=== PATIENT | female | born 1975 | race Caucasian/White ===

== ENCOUNTER 2018-02-02 12:42 | Outpatient (REF) | payer SELFPAY ==
--- NOTE | 2018-02-02 11:10 | PAPFT_PTH ---
PATIENT: Halina Saucedo LOC: [facility] U#:[id number] AGE/SX: 42/F ROOM: RE02/02/[address]: LINDSAY Begum : 1975 BED: DIS: 02/02/2018 SPEC #: [id number] RECD: 02/02/18 17:39 STATUS: SUDHA REQ #: [id number] ELIEL: 02/02/18 11:[address]: Sofya Godinez DEPT: [facility] Cytology RECD BY: Ruth Rolon ENTERED: 02/02/18 17:40 SP TYPE: PAPFT OTHR DR: Kishore Kearney MD Tissues: 1 - CX/ENDOCX FOR PAP SMEARS Procedures: PAP THIN PREP/UVM Screening Comments: [id number] (UNSATISFACTORY FOR EVALUATION)
== END 2018-02-02 13:02 ==
LOC: LBN 12:42
PROVIDERS: PCP Family Medicine; Visit Provider Nurse Practitioner Family
DX: Z12.4 Encounter for screening for malignant neoplasm of cervix (principal); Z11.51 Encounter for screening for human papillomavirus (HPV)
CPT/HCPCS: 88142; 87624

== ENCOUNTER 2018-02-04 16:29 | Outpatient (CLI) | payer SELFPAY ==
--- NOTE | 2018-02-04 16:53 | DI.MAMMO_ITS ---
SYMPTOM/DIAGNOSIS: SCREENING, Z12.31 MAMMOGRAMS: Mammograms were interpreted according to the usual protocol including computer analysis with CAD system, tomosynthesis and C view imaging. Comparison is made with prior examinations. Breast density, Category B. No masses or microcalcifications are seen. There is nothing to suggest malignancy. IMPRESSION: Negative mammogram. Routine screening is recommended. Category 1. MQSA ASSESSMENT OF FINDINGS: Negative. Category 1. Patient will receive a letter notifying them of these results. BI-RADS category B. There are scattered areas of fibroglandular density.
== END 2018-02-04 16:49 ==
PROVIDERS: PCP Family Medicine; Visit Provider Nurse Practitioner Family
DX: Z12.31 Encounter for screening mammogram for malignant neoplasm of breast (principal)
CPT/HCPCS: 77063; 77067

== ENCOUNTER 2018-12-30 07:20 | Outpatient (CLI) | payer BC, SELFPAY ==
--- NOTE | 2018-12-30 10:03 | DI.MAMMO_ITS ---
EXAM: US BREAST LT LIMITED AND DIAGNOSTIC BILAT MAMMOGRAM CLINICAL HISTORY: F/U MAMMO, LT BREAST PAIN AND INCREASED NODULARITY. {SAMANTHA LIFETIME RISK OF DEVEL OPING BREAST CARCINOMA: (>20% is considered elevated and screening breast MRI can be considered)} TECHNIQUE: Craniocaudal and mediolateral oblique Full Field Digital Mammography views with Computer Aided Diagnosis followed by Breast Tomosynthesis and bilateral breast ultrasound. COMPARISON: Screening Bilat Mammo from 09/23/2016 [facility] mammo screening from 02/04/2018 FINDINGS: Mammography/Tomosynthesis: Breast Density: Breast Density - Category B - Scattered areas of fibroglandular density Masses/Architectural Distortion: None seen. Microcalcifications: No suspicious pleomorphic-type are seen. Breast Ultrasound: Left breast ultrasound: Echotexture: Normal appearance of the glandular tissue. Shadowing: No suspicious foci. Cyst: Small cyst is seen at the 2 o'clock position of the left breast 4 cm from the nipple. Solid lesions: None seen. Ductal dilation: None. IMPRESSION: 1. No evidence for malignancy. 2. Unless there is more urgent need, follow-up screening mammography is recommended, as per [place] [employer] guidelines. ACR BI-RAD Category- 1 Negative Breast Density - Category B - Scattered areas of fibroglandular density The findings were discussed with the patient on the date of the examination. A negative radiographic report should not delay biopsy if a dominant or clinically suspicious mass is present. Up to ten percent of cancers are not identified on mammography. A negative report may reinforce clinical impression. Adenosis and dense breasts may obscure an underlying neoplasm. False positive reports average 6 to 10%.
== END 2018-12-30 07:40 ==
PROVIDERS: PCP Family Medicine; Visit Provider Nurse Practitioner Family
DX: N63.20 Unspecified lump in the left breast, unspecified quadrant (principal); Z13.21 Encounter for screening for nutritional disorder; R92.8 Other abnormal and inconclusive findings on diagnostic imaging of breast; N64.4 Mastodynia; N60.02 Solitary cyst of left breast
CPT/HCPCS: 76642; 77062; 77066; G0279

== ENCOUNTER 2020-04-06 00:55 | Outpatient (CLI) | payer BC, SELFPAY ==
--- NOTE | 2020-04-06 07:00 | DI.US_ITS ---
EXAM: US PELVIS TRANSVAGINAL CLINICAL HISTORY: irregular and heavy bleeding,ABNL BLEEDING,N93.9 TECHNIQUE: Ultrasound of the pelvis was performed both transabdominal and transvaginal. COMPARISON: US US BREAST LT LIMITED from 12/30/2018 FINDINGS: UTERUS: Nongravid anteverted Measures 9.5 cm length x 4.2 cm AP x 5.7 cm wide. There are no uterine fibroids. Endometrial thickness measures 16-17 mm. There is no fluid in the endometrial canal. CERVIX: There are no obvious nabothian cysts. RIGHT OVARY: Measures 0.1 x 1.1 x 1.6 cm Small follicles follicles, the largest measuring 8 millimeters LEFT OVARY: Measures 3 point by 1.8 x 2.4 cm Multiple follicular cysts, the largest measuring 1.4 centimetres diameter CUL-DE-SAC: No free fluid evident. IMPRESSION: 1. Thickened endometrium measuring 16-17 millimeters. There is no fluid in the endometrial canal 2. Ovarian follicular cysts as described above, the largest measuring 1.4 centimetres by 1.3 centimet res (left ovary) 3. No free fluid evident in the adnexal regions and cul-de-sac. DATA REPOSITORY:
== END 2020-04-06 01:15 ==
PROVIDERS: PCP Family Medicine; Visit Provider Nurse Practitioner Family
DX: N93.9 Abnormal uterine and vaginal bleeding, unspecified (principal); R93.89 Abnormal findings on diagnostic imaging of other specified body structures; N83.02 Follicular cyst of left ovary; N83.01 Follicular cyst of right ovary
CPT/HCPCS: 76830; 76856

== ENCOUNTER 2020-04-14 10:10 | Outpatient (REF) | payer BC, SELFPAY ==
--- NOTE | 2020-04-14 10:00 | ENDO_PTH ---
PATIENT: Halina Saucedo LOC: [facility] U#:[id number] AGE/SX: 44/F ROOM: RE04/14/[address]: Alisa Vaz : 1975 BED: DIS: 04/14/2020 SPEC #: [id number] RECD: 04/14/20 13:19 STATUS: SUDHA REPeterson #: [id number] ELIEL: 04/14/20 10:[address]: Alisa Vaz DEPT: Surgical Specimen RECD BY: Ruth Rolon ENTERED: 04/14/20 13:20 SP TYPE: Endo OTHR DR: Kishore Kearney MD Tissues: 1 - ENDOCERVICAL BX/CURRETTE 2 - CERVICAL BIOPSY 3 - ENDOMETRIUM BX/CURRETTE Procedures: GROSS AND MICRO LEVEL 4 Comments: [id number]
== END 2020-04-14 10:30 ==
LOC: LBN 10:10
PROVIDERS: PCP Family Medicine; Visit Provider Obstetrics & Gynecology Gynecology
DX: N85.01 Benign endometrial hyperplasia (principal); N87.9 Dysplasia of cervix uteri, unspecified; N93.9 Abnormal uterine and vaginal bleeding, unspecified
CPT/HCPCS: 88305

== ENCOUNTER 2021-05-31 04:30 | Outpatient (CLI) | payer BC, SELFPAY ==
[2021-05-31 11:03] LABS: Hemoglobin A1C 5.8 % (<5.7)
[2021-05-31 11:19] LABS: Calculated LDL 110 mg/dL (<100); Cholesterol 205 mg/dL (<200); HDL Cholesterol 72 mg/dL (40-60); Triglyceride 119 mg/dL (<150)
== END 2021-05-31 04:31 | disposition home or self-care (01) ==
LOC: LBO 04:30
PROVIDERS: PCP Nurse Practitioner Family; Visit Provider Nurse Practitioner Family
DX: Z13.220 Encounter for screening for lipoid disorders (principal); Z13.1 Encounter for screening for diabetes mellitus
CPT/HCPCS: 36415; 80061; 83036

== ENCOUNTER 2021-07-23 15:17 | Outpatient (CLI) | payer BC, SELFPAY ==
[2021-07-23 14:09] LABS: HCT 34.4 % (36.0-46.0); HGB 10.9 g/dL (11.2-15.7)
[2021-07-23 14:31] LABS: TSH (W/Ref FT4) 3.79 uIU/mL (0.36-3.74)
[2021-07-23 14:51] LABS: FREE T4 0.94 ng/dL (0.76-1.46)
== END 2021-07-23 15:18 | disposition home or self-care (01) ==
LOC: LBO 15:18
PROVIDERS: PCP Nurse Practitioner Family; Visit Provider Nurse Practitioner Family
DX: N93.8 Other specified abnormal uterine and vaginal bleeding (principal)
CPT/HCPCS: 36415; 84439; 84443; 85014; 85018

== ENCOUNTER 2021-09-04 12:37 | Outpatient (REF) | payer BC, SELFPAY ==
--- NOTE | 2021-09-04 10:40 | ENDOMET_PTH ---
PATIENT: Halina Saucedo LOC: [facility] U#:[id number] AGE/SX: 45/F ROOM: RE09/04/[address]: Danielle Sanderson DO : 1975 BED: DIS: 09/04/2021 SPEC #: [id number] RECD: 09/04/21 13:07 STATUS: SUDHA RE #: [id number] ELIEL: 09/04/21 10:[address]: Danielle Sanderson DEPT: Surgical Specimen RECD BY: Ruth Rolon ENTERED: 09/04/21 13:07 SP TYPE: Endomet OTHR DR: Yang Dobbins, EVETTE Tissues: 1 - ENDOMETRIUM BX/GIANLUCA Procedures: GROSS AND MICRO LEVEL 4 Comments: [id number]
== END 2021-09-04 12:38 | disposition home or self-care (01) ==
LOC: LBN 12:37
PROVIDERS: PCP Nurse Practitioner Family; Visit Provider Obstetrics & Gynecology
DX: N84.0 Polyp of corpus uteri (principal); N85.8 Other specified noninflammatory disorders of uterus; N93.8 Other specified abnormal uterine and vaginal bleeding
CPT/HCPCS: 88305

== ENCOUNTER 2021-09-17 02:52 | Outpatient (CLI) | payer BC, SELFPAY ==
[2021-09-17 11:34] LABS: Abs Immature Grans 0.03 10^3/uL (0.0-0.06); Absolute Basophil Count 0.05 10^3/uL (0.0-0.2); Absolute Lymphocyte Count 2.28 10^3/uL (1.2-3.4); Absolute Monocyte Count 0.74 10^3/uL (0.1-0.8); Absolute Neutrophil Count 6.23 10^3/uL (1.2-6.7); Basophils % 0.5; Eosinophils % 2.1; HCT 36.2 % (36.0-46.0); Immature Grans % 0.3; Lymphocytes % 23.9; MCH 22.3 pg (27.0-33.0); MCHC 30.4 % (32.0-36.0); MCV 73 fL (80-95); MPV 10.4 fL (8.0-11.0); Monocytes % 7.8; Neutrophils % 65.4; Platelet Count 387 10^3/uL (130-400); RBC 4.94 10^6/uL (3.93-5.22); RDW 16.4 % (11.7-14.6); RDW-SD 42.9 fL; WBC 9.53 10^3/uL (4.4-10.8)
[2021-09-17 11:48] LABS: Source Nasal/Nares
[2021-09-17 11:57] LABS: CREATININE 0.8 mg/dL (0.55-1.02)
[2021-09-17 11:59] LABS: Diff Comment RBC Morph Reviewed; Microcytosis 2+
[2021-09-17 15:42] LABS: COVID-19 PCR Negative (Negative)
== END 2021-09-17 02:53 | disposition home or self-care (01) ==
LOC: LBO 02:52
PROVIDERS: PCP Nurse Practitioner Family; Visit Provider Obstetrics & Gynecology
DX: D64.9 Anemia, unspecified; N92.0 Excessive and frequent menstruation with regular cycle; I10 Essential (primary) hypertension; Z20.822 Contact with and (suspected) exposure to COVID-19; Z01.818 Encounter for other preprocedural examination; Z01.812 Encounter for preprocedural laboratory examination
CPT/HCPCS: 36415; 86850; 86900; 86901; 87635; 82565; 85025

== ENCOUNTER 2021-09-19 06:15 | Inpatient (IN) | payer BC, SELFPAY ==
--- NOTE | 2021-09-18 12:26 | HPE_ITS ---
Date of service: 09/18/21 Time of Service: 12:26 Assessment and Plan Assessment and plan (1) Menorrhagia: Status: Acute Assessment and plan: Ongoing heavy menstrual bleeding with a history in the past of endometrial ablation, which has at this point failed. She has heavy and painful menstrual cycles. She has had some improvement with progesterone use for stabilization of the endometrium, however wishes for definitive therapy. The risk benefits and alternatives of laparoscopically assisted vaginal history with bilateral salpingectomy were explained to the patient in full informed consent was obtained. She understands the risk of infection, bleeding, injury to surrounding organs, risk of anesthesia. She understands the increased risk for thromboembolic disorders. She will be taken the operating room on 09/19 due to the previously mentioned procedure. Preoperative hemoglobin is 11. COVID testing is performed and normal. Blood type is O+. (2) Dysmenorrhea: Status: Acute (3) History of endometrial biopsy: Status: Acute History of Present Illness Narrative: Patient is a 45-year-old female who has had ongoing heavy vaginal bleeding. She had had a pelvic ultrasound, endometrial sampling, and was placed empirically on Cheston to control her bleeding and for stabilization of the endometrium. Her heavy menstrual bleeding and painful periods did lead to anemia. She request definitive therapy. Risk benefits and alternatives of laparoscopically assisted vaginal hysterectomy with bilateral appendectomy were explained to the patient in full informed consent had been obtained. She had no need for contraceptive therapy as she has had a previous tubal ligation. Her pelvic ultrasound revealed a uterus that measured 10.5 x 5.3 x 7.3 cm with a 3.5 cm endometrial thickness. Ovaries are normal bilaterally. Endometrial sampling was benign. Most recent Pap smear is up-to-date and normal. PFSH All Active Problems Hypothyroid (Chronic) Tinnitus of both ears (Acute) GERD (gastroesophageal reflux disease) (Chronic) Hypertension (Chronic) Low back pain (Acute) History of endometrial biopsy (Acute) 2013. for menorrhagia. Nl. 03/2020. for eval of menorrhagia. Unsatisfactory cervical Papanicolaou smear (Chronic) 04/14/2020: Colpo directed biopsy and ECC was performed Bilateral hearing loss (Acute 06/29/00) Cochlear implant in place (Acute) Menorrhagia (Acute) 04/14/2020 patient counseled regarding treatment options. Has decided upon a hydrothermal endometrial ablation. Dysmenorrhea (Acute) Medical History Abnormal uterine bleeding for ~ 1yr. Heavy regular menses. Dysmenorrhea. Nl CBC and TSH. Uterus 9cm with 20m myometrial fibroid. Surgical History History of cochlear implant Ligation of fallopian tube Family History Mother Essential hypertension Grandfather Personal history of malignant neoplasm LUNG CAD (coronary artery disease) Grandmother Personal history of malignant neoplasm BREAST/OVARIAN Son No problems noted. Son No problems noted. Daughter No problems noted. Social History Smoking/Tobacco Use Status: Never Second Hand Exposure: Yes Smoking risk assessment performed?: Yes Alcohol Intake: current Alcohol type: beer and wine Drug use: Never Household members: spouse Housing: house Communication Needs: Hard of Hearing Do you need help understanding health information?: Never Pets and animals: No Sexually active: Yes Do you think of yourself as: straight/heterosexual Current gender identity: female What is your relationship status?: How often do you talk on the phone with friends or family?: three or more times per week How often do you get together with friends or relatives?: three or more times per week How often do you attend holiness or buddhist services?: decline to answer Do you belong to any clubs or organized social groups?: no Panel score (0-1 are the most socially isolated patients): 2 What type of physical activity do you participate in: walking Duration: 30-45 minutes/day Frequency: daily Oumou/Latter Day: None Do you feel safe in your relationship?: Yes Female Reproductive History Menstrual control method: permanent sterilization History History 4 Para 3 Hx # Term Pregnancies Multiple births Hx # Pregnancies Ectopic pregnancies AB induced Hx Number of Living Children AB spontaneous Meds Allergies and Home Medications Allergies Allergy/AdvReac Type Severity Reaction Status Date / Time cyclobenzaprine AdvReac lip Verified 09/04/21 10:31 [From Flexeril] tingling Home Medications Medication Instructions Recorded Confirmed Type omeprazole 20 mg capsule,delayed 20 mg PO DAILY #90 caps 05/31/21 08/13/21 Rx release lisinopril 10 mg tablet 10 mg PO DAILY #90 tabs 06/28/21 08/13/21 Rx levothyroxine 25 mcg tablet 25 mcg PO DAILY #90 tabs 07/27/21 08/13/21 Rx (Synthroid) norethindrone acetate 5 mg tablet 5 mg PO Q4H WHILE AWAKE #120 tabs 09/04/21 09/04/21 Rx (Aygestin) Exam Narrative Exam Narrative: Patient has ongoing painful heavy vaginal bleeding Const General: cooperative, healthy appearing, comfortable, no acute distress, well developed and well groomed Nutritional Appearance: average body habitus HENMT Head: normal to inspection Eyes General: appearance normal, both eyes and all related structures Neck Neck: normal visual inspection Resp Effort & Inspection: normal respiratory effort, no audible wheezes and no cough Auscultation: clear to auscultation bilaterally, no rales, no rhonchi and no wheezes Cardio Rate: regular rate Rhythm: regular rhythm Heart Sounds: S1 normal, S2 normal and no murmurs GI Inspection: normal to inspection Palpation: not firm and no guarding External Female Exam: normal external appearance and no external swelling Speculum Exam - Vagina: normal appearance of the vagina, normal vaginal discharge and vaginal bleeding Speculum Exam - Cervix: normal appearance of the cervix Bimanual Exam- Vagina & Uterus: normal bimanual exam, consistency normal, non- tender, enlarged and not fixed Bimanual Exam- Adnexa, other: normal adnexae, adnexae mobile and no masses OB/External & Speculum: vaginal bleeding Skin General skin exam: no rashes or lesions noted Extrem General: no clubbing, cyanosis or edema
[2021-09-19] VITALS (16 sets, daily range): BP systolic 100–152; BP diastolic 39–103; PULSE 52–80; RESP 12–20; TEMP 36.3–37; O2SAT 94–100; BMI 39.0
--- NOTE | 2021-09-19 06:53 | W.ANESPRE ---
General Info Date of Service Date Performed: 09/19/21 Height: 5 ft 5 in Weight: 106.5 kg Body Mass Index (BMI): 39.0 Surgical Procedure: Operation Date: 09/19/21 07:40 Proposed Procedure Side Surgeon p Hysterectomy Vaginal Laparoscopic Assist w/Cystoscopy Danielle Sanderson DO s Salpingectomy Laparoscopic Bilateral Danielle Sanderson DO [place] Allergies and Home Medications Allergies Allergy/AdvReac Type Severity Reaction Status Date / Time cyclobenzaprine AdvReac lip Verified 09/19/21 06:06 [From Flexeril] tingling Home Medication Medication Instructions Recorded omeprazole 20 mg capsule,delayed 20 mg PO DAILY #90 caps 05/31/21 release lisinopril 10 mg tablet 10 mg PO DAILY #90 tabs 06/28/21 levothyroxine 25 mcg tablet 25 mcg PO DAILY #90 tabs 07/27/21 (Synthroid) norethindrone acetate 5 mg tablet 5 mg PO Q4H WHILE AWAKE #120 tabs 09/04/21 (Aygestin) Current Visit Medications: Current Medications Generic Name Dose Route Start Last Admin Trade Name Freq PRN Reason Stop Dose Admin Ringer's Solution 1,000 mls @ 125 mls/hr 09/19/21 06:00 IV 10/18/21 23:59 INFUSION MIRIAN Cefazolin Sodium/Dextrose 2 gm in 50 mls @ 100 mls/hr 09/19/21 06:00 Ancef Duplex IVPB 09/19/21 16:00 PREOP MIRIAN IV Miscellaneous Supplies 1 each 09/19/21 06:00 Iv Access IV 10/18/21 23:59 DIRECTED MIRIAN Sodium Chloride 0 ml 09/19/21 06:00 Normal Saline Flush 10 Ml Syr IV 10/18/21 23:59 PRN PRN Sodium Chloride 0 ml 09/19/21 06:00 Normal Saline 10 Ml Vial IJ 10/18/21 23:59 DIRECTED PRN Sterile Water 0 ml 09/19/21 06:00 Water,Injection,Sterile 10 Ml Vial IJ 10/18/21 23:59 DIRECTED PRN PFSH Active Problems Active Problems: Problem Status Onset Code Hypothyroid E03.9 Tinnitus of both ears H93.13 GERD (gastroesophageal reflux disease) K21.9 Hypertension I10 Low back pain M54.5 History of endometrial biopsy Z92.89 Unsatisfactory cervical Papanicolaou smear R87.615 Bilateral hearing loss 06/29/00 H91.[address] Z96.21 Menorrhagia N92.0 Dysmenorrhea N94.6 Medical History Medical History Abnormal uterine bleeding for ~ 1yr. Heavy regular menses. Dysmenorrhea. Nl CBC and TSH. Uterus 9cm with 20m myometrial fibroid. Surgical History Surgical History History of cochlear implant Ligation of fallopian tube Tobacco Smoking/Tobacco Use Status: Never Passive smoking exposure: Yes Second hand exposure: Yes Alcohol Alcohol Intake: current Alcohol type: beer and wine Substance Use Substance use: Never Substance use type: does not use Prental History History 4 Para 3 Hx # Term Pregnancies Multiple births Hx # Pregnancies Ectopic pregnancies AB induced Hx Number of Living Children AB spontaneous Vital Signs and Lab Results Vital Signs Most Recent Vital Signs in EMR: Most Recent Vital Signs Temp Pulse Resp BP Pulse Ox 37 C 78 18 152/103 H 99 09/19/21 06:15 09/19/21 06:15 09/19/21 06:15 09/19/21 06:15 09/19/21 06:15 Lab Results Blood Type / Crossmatch: Patient ABO/Rh O Positive 09/17/21 Antibody Screen NEGATIVE 09/17/21 Complete Blood Count: White Blood Count 9.53 10^3/uL (4.4-10.8) 09/17/21 11:22 Red Blood Count 4.94 10^6/uL (3.93-5.22) 09/17/21 11:22 Hemoglobin 11.0 g/dL (11.2-15.7) L 09/17/21 11:22 Hematocrit 36.2 % (36.0-46.0) 09/17/21 11:22 Platelet Count 387 10^3/uL (130-400) 09/17/21 11:22 Complete Metabolic Panel: Creatinine 0.8 mg/dL (0.55-1.02) 09/17/21 11:22 Estimated GFR/1.73 m2 >= 60.00 (mL/min/1.73m2) 09/17/21 11:22 Liver Function Panel: No Data to Display Coagulation Panel: No Data to Display Cardiac Panel: No Data to Display Arterial Blood Gas: No Data to Display Venous Blood Gas: No Data to Display Pancreas Panel: No Data to Display Thyroid Panel: No Data to Display Infectious Disease: Coronavirus (COVID-19)(PCR) Negative (Negative) 09/17/21 11:05 Coronavirus 2019 Source Nasal/Nares 09/17/21 11:05 Blood Cultures: No Data to Display Toxicology Panel: No Data to Display Panel: Urine HCG, Qualitative Negative 09/04/21 12:31 Anesthesia Assessment and Plan Anesthesia History Personal History: No History of Anesthesia Complications Family History: No Family History of Anesthesia Complications Exercise Tolerance Exercise Tolerance: Metabolic Equivalents>4 Pertinent Negatives Pertinent Negatives: No Symptoms of GERD, No Major Cardiovascular Symptoms or Complaints, No Major Pulmonary Symptoms or Complaints and No History of CVA/TIA Cardiac & Pulmonary Exam Cardiac Exam: Normal S1/S2 Heart Sounds Pulmonary Exam: Clear Bilateral Breath Sounds Implantable Cardiac Device Does patient have a Pacemaker or an ICD?: No Airway Exam Known Difficult Airway: No Mallampati Class: 1 Mouth Opening: Normal (> 3cm) Thyromental Distance: Greater than 3 cm Neck Range of Motion: Full ROM Neck Circumference: Normal Teeth Condition: Normal Dentition ASA Classification ASA Score: ASA 2 Emergency Case?: No NPO Status NPO Status: NPO Clears >2 hours, Solids >8 hours Status Status: Negative HCG Anesthesia Plan Resuscitation Status: Full Code Anesthesia Technique: General Anesthesia Airway Planned: Endotracheal Tube Pain Management: Intrathecal Analgesia Monitors Used: Standard Monitors Preoperative Comments:: cochlear implants, will keep device in place
[2021-09-19] MEDS: Lactated Ringers 1,000 ML 125 ML IV ×3 (06:54→18:28)
[2021-09-19] MEDS: ceFAZolin 2 GM/50 ML BAG IVPB (07:37)
--- NOTE | 2021-09-19 09:06 | UTER_PTH ---
PATIENT: Halina Saucedo LOC: [facility] U#:[id number] AGE/SX: 45/F ROOM: OBS.306 RE09/19/[address]: Danielle Sanderson DO : 1975 BED: A DIS: 09/20/2021 SPEC #: [id number] RECD: 09/19/21 12:34 STATUS: SOUT REQ #: [id number] ELIEL: 09/19/21 09:[address]: Danielle Sanderson DEPT: Surgical Specimen RECD BY: Ruth Rolon ENTERED: 09/19/21 12:35 SP TYPE: UTER OTHR DR: Yang Dobbins, EVETTE Tissues: 1 - UTERUS W OR W/O OVARIES(NOT TUMOR/PROLAPSE) Procedures: GROSS AND MICRO LEVEL 5 Comments: [id number]
[2021-09-19] MEDS: Bupivacaine 0.5% Pres-Free 30 ML VIAL (09:38)
--- NOTE | 2021-09-19 09:43 | ROE_ITS ---
Date of service: 09/19/21 Time of Service: 09:43 Operative Note Operative Note DATE OF PROCEDURE: 09/19/21 PRE-OP DIAGNOSIS: Heavy menstrual bleeding, thickened endometrium, symptomatic anemia POST-OP DIAGNOSIS: same PROCEDURE: Laparoscopically assisted vaginal hysterectomy with bilateral salpingectomy and cystoscopy SURGEON: Danielle Sanderson ASSISTING SURGEON: Alisa Vaz ANESTHESIA TYPE: Local By Surgeon, General LMA/ETT and Spinal Refer to Anesthesia Record ESTIMATED BLOOD LOSS: 100 PATHOLOGY: other (Bilateral fallopian tubes, uterus, cervix) COMPLICATIONS: None Patient was transported to: PACU Patient's condition: stable Implants: None Indications: Remote history of endometrial ablation, ongoing heavy menstrual bleeding, symptomatic anemia Findings: Normal-appearing ovaries, remnant of fimbriated end of fallopian tubes bilaterally, bulky, globular uterus. No other intra-abdominal or pelvic pathology noted Procedure Description: After full informed consent was obtained and preoperative laboratory studies performed, patient was taken the operating suite with an IV running. She was placed in the seated position and spinal anesthesia administered for postopera tive pain control. She was then placed in the modified dorsolithotomy position after general anesthesia administered via endotracheal intubation. She was placed in [facility] stirrups and prepped and draped in the usual sterile fashion. She had pneumatic compression stockings placed for thromboembolism protection. Exam under anesthesia revealed a uterus that was bulky, midline, mobile. Armstrong catheter was inserted for continuous bladder drainage. Speculum was inserted into the vaginal vault and a [employer] uterine manipulator placed for uterine manipulation. After speculum was removed attention was turned to the abdomen where a small infraumbilical skin incision was made. This area had been infiltrated with quarter percent Marcaine. The anterior abdominal wall was elevated with sharp towel clip and a varies needle inserted directly into the abdomen. With a maximum pressure of 15 mmHg, CO2 gas was used to create a pneumoperitoneum. The abdomen and pelvis were inspected and found to be atraumatic. A second and third right and left lower quadrant trocar site was placed after infiltration of quarter percent Marcaine under direct visualization. At this point the uterus was elevated. The abdomen and pelvis inspected. Ovaries appeared normal bilaterally. There was a remnant of fallopian tube adherent to both left and right ovary. The uterus was overall globular, and bulky. Attention was first turned to the left tubal remnant which was elevated and cautery transected. The remnant was removed through the umbilical port. Similar procedure was carried out on the right fallopian tube remnant. At this point the uterus was elevated again and the right utero-ovarian ligament was identified cautery transected and ligated. The right round ligament was cautery transected and ligated. The anterior leaf of the broad ligament was elevated and the bladder flap created. The uterine artery and vein were cauterized on the right. A similar procedure was carried out on the left utero-ovarian ligament, left round ligament, left broad ligament, creating the remainder of the bladder flap. The uterine vessels were cauterized on the left as well. At this point all pedicles were found to be hemostatic and attention was turned to the vaginal vault. Pneumoperitoneum was released. Speculum was inserted into the vaginal vault and Juan Carlos clamps were used to grasp the anterior and posterior lip of the cervix. A circumferential incision was made with the cautery. The posterior cul-de-sac was entered sharply and a longbilled weighted speculum was placed. The right and left uterosacral cardinal ligaments were clamped transected and suture-ligated. Attention was then turned to the anterior cul-de-sac which was entered sharply. The remainder of the uterine pedicles were clamped, transected, and suture-ligated initially on the left, followed by the right. This allowed delivery of the uterus and cervix through the vaginal vault. Pedicles at this point were found to be hemostatic. The posterior cul-de-sac was reapproximated with a Grant's culdoplasty. The vaginal cuff was then closed using 0 Vicryl suture in a running locked fashion incorporating uterosacral cardinal complexes at the right and left corner for good pelvic support. At this point attention was returned to the abdomen where pneumoperitoneum recreated and all pedicles inspected, and found to be hemostatic. Abdomen was irrigated with copious amounts of normal saline and with low pressure of 5 mmHg again pedicles were inspected and hemostatic. The abdominal portion of the procedure was then terminated. CO2 gas released. All instruments were removed under direct visualization. The fascial incision was closed using 0 Vicryl suture and skin edge reapproximated with 4-0 undyed Monocryl and Steri-Strips and sterile dressings were placed. At this point cystoscopy was performed after intravascular indigocarmine was given. The bladder was found to completely intact with no evidence of trauma. The ureteric orifice ease were visualized and jets of blue urine produced on each side. At this point, procedure was completed and cystoscopy removed. Armstrong catheter was reinserted for continuous bladder drainage. Complications: None apparent EBL: 100 mL Findings: Bulky uterus, normal-appearing ovaries, remnant of fallopian tubes bilaterally. Pathology: Uterus, cervix, remnant of fallopian tubes bilaterally sent for examination.
--- NOTE | 2021-09-19 10:44 | W.ANESPOSTOP ---
Postoperative Evaluation Date, Time and Location Date Performed: 09/19/21 Time Performed: 10:44 Patient Location: PACU Vital Signs Most Recent Imported Vital Signs: Most Recent Vital Signs Temp Pulse Resp BP Pulse Ox 36.3 C L 54 L 12 113/49 L 98 09/19/21 10:35 09/19/21 10:35 09/19/21 10:35 09/19/21 10:35 09/19/21 10:35 Pain Score Most Recent Pain Score: Most Recent Pain Score Pain Level 0 09/19/21 10:35 Assessment Mental Status: Awake (Alert & Oriented to Patient Baseline) Airway and Respiratory Function: Patent airway with normal (patient baseline) respiratory exam Cardiovascular Function: Hemodynamically Stable Hydration Status: Adequately Hydrated Nausea & Vomiting: No Nausea or Vomiting Pain: Pt. Denies Any Pain Peripheral Nerve Block: Patient did not receive a nerve block
[2021-09-19] MEDS: Normal Saline Flush 10 ML SYR IV (12:00)
[2021-09-19] MEDS: Ondansetron 4 MG/2 ML VIAL IVP ×2 (12:00→15:52)
[2021-09-19] MEDS: diphenhydrAMINE 50 MG/ML VIAL 25 MG IVP (14:14)
[2021-09-19] MEDS: Ketorolac 30 MG/ML VIAL 15 MG IVP ×2 (15:53→21:10)
--- NOTE | 2021-09-19 16:32 | W.PM.PROGNOT ---
Date of Service Date of service: 09/19/21 Time of Service: 16:32 Assessment and Plan Assessment and plan (1) Status post laparoscopic assisted vaginal hysterectomy (LAVH): Status: Acute Subjective Subjective Interval history since last seen: Patient seen postoperative day #0 status post laparoscopically assisted vaginal hysterectomy with bilateral salpingectomy. Overall she is doing well. Her vital signs were reviewed and are stable. She is having some mild nausea and vertigo which is very typical for her after anesthetic. All of her questions for her and her were answered. My anticipation would be for discharge home tomorrow if stable. Objective Last Vital Signs Temp 97.3 F L 09/19/21 12:15 Pulse 63 09/19/21 12:50 Resp 16 09/19/21 12:15 BP 109/78 09/19/21 12:50 Pulse Ox 94 09/19/21 12:15
[2021-09-19] MEDS: Docusate Sodium 100 MG CAP PO (19:17)
[2021-09-19] MEDS: Pantoprazole 40 MG VIAL IVP (21:08)
[2021-09-19] MEDS: diphenhydrAMINE 25 MG CAP PO (21:09)
[2021-09-20] MEDS: Lactated Ringers 1,000 ML 125 ML IV (01:53)
[2021-09-20 03:41] VITALS: BP 103/57; PULSE 50; RESP 12; TEMP 36.7; O2SAT 97
[2021-09-20] MEDS: Ketorolac 30 MG/ML VIAL 15 MG IVP (03:44)
[2021-09-20] MEDS: Acetaminophen 500 MG TAB PO ×2 (03:45→09:05)
[2021-09-20 07:35] VITALS: BP 115/69; PULSE 57; RESP 16; TEMP 36.8
[2021-09-20 07:39] LABS: Abs Immature Grans 0.07 10^3/uL (0.0-0.06); Absolute Basophil Count 0.03 10^3/uL (0.0-0.2); Absolute Lymphocyte Count 1.71 10^3/uL (1.2-3.4); Absolute Monocyte Count 1.07 10^3/uL (0.1-0.8); Absolute Neutrophil Count 13.14 10^3/uL (1.2-6.7); Basophils % 0.2; HCT 33.8 % (36.0-46.0); HGB 10.4 g/dL (11.2-15.7); Immature Grans % 0.4; Lymphocytes % 10.7; MCH 22.2 pg (27.0-33.0); MCHC 30.8 % (32.0-36.0); MCV 72 fL (80-95); MPV 11.1 fL (8.0-11.0); Monocytes % 6.7; Platelet Count 382 10^3/uL (130-400); RBC 4.69 10^6/uL (3.93-5.22); RDW 16.7 % (11.7-14.6); RDW-SD 42.6 fL; WBC 16.02 10^3/uL (4.4-10.8)
[2021-09-20] MEDS: Lisinopril 10 MG TAB PO (07:49)
[2021-09-20] MEDS: Levothyroxine 25 MCG TAB PO (07:49)
[2021-09-20] MEDS: Omeprazole 20 MG CAPCR PO (07:49)
--- NOTE | 2021-09-20 07:54 | W.PM.PROGNOT ---
Date of Service Date of service: 09/20/21 Time of Service: 07:54 Assessment and Plan Assessment and plan (1) Status post laparoscopic assisted vaginal hysterectomy (LAVH): Status: Acute Assessment and plan: Postoperative day #1 status post laparoscopically assisted vaginal hysterectomy with bilateral salpingectomy. Doing well. Some nausea and vertigo last night, though improved this morning. Anticipate discharge to home today with the usual precautions. Prescription sent to the pharmacy. All questions were answered. Subjective Subjective Interval history since last seen: Patient seen and examined this morning. Overall doing well. Throughout the night she did have some nausea and vomiting. Armstrong catheter was removed at approximately 4 AM. She is due to void at this point. Her nausea is improved. She does desire discharge home today. All questions were answered. Exam Const General: cooperative, healthy appearing, comfortable, no acute distress, well developed and well groomed Nutritional Appearance: average body habitus Orientation: alert and oriented x3 Eyes General: appearance normal, both eyes and all related structures Neck Neck: normal visual inspection, supple and no anterior neck swelling Resp Effort & Inspection: normal respiratory effort Auscultation: clear to auscultation bilaterally Cardio Rate: regular rate Rhythm: regular rhythm GI Inspection: normal to inspection, non-distended and incision (Clean, dry, intact) Palpation: soft, not firm and no guarding Skin General skin exam: no rashes or lesions noted Neuro General: patient alert and patient oriented x3 Extrem General: normal to inspection, no clubbing, cyanosis or edema and no pedal edema Psych Appearance: grossly normal Mental Status: mental status grossly normal Mood: congruent mood Affect: normal affect Thought Process: normal Objective Last Vital Signs Temp 98.2 F 09/20/21 07:35 Pulse 57 L 09/20/21 07:35 Resp 16 09/20/21 07:35 BP 115/69 09/20/21 07:35 Pulse Ox 97 09/20/21 03:41 Laboratory Results - last 24 hr 09/20/21 06:13 WBC 16.02 H RBC 4.69 Hgb 10.4 L Hct 33.8 L MCV 72 L MCH 22.2 L MCHC 30.8 L RDW 16.7 H Plt Count 382 MPV 11.1 H Immature Gran % 0.4 Neutrophils % 82.0 Lymphocytes % 10.7 Monocytes % 6.7 Eosinophils % 0.0 Basophils % 0.2 Nucleated RBC % 0.0 Absolute Neutrophils 13.14 H Absolute Lymphocytes 1.71 Absolute Monocytes 1.07 H Absolute Eosinophils 0.00 Absolute Basophils 0.03
--- NOTE | 2021-09-20 08:06 | DSE_ITS ---
Date of service: 09/20/21 Time of Service: 08:07 DS: Diagnosis Discharge Diagnosis (1) Status post laparoscopic assisted vaginal hysterectomy (LAVH): Status: Acute Asessment and Plan: Postoperative day #1 status post uncomplicated laparoscopically assisted vaginal hysterectomy with bilateral salpingectomy. Mild to moderate postoperative nausea now with proved. Discharge home today. Follow-up in the office in 2 and 6 weeks. Prescription sent to pharmacy. All questions answered Discharge Plan Disposition Patient Disposition: HOME Condition: Good Discharge Details Reason For Visit: Laparoscopically assisted vaginal hysterectomy Admit Date/Time: 09/19/21 06:15 Admit Provider: Danielle Sanderson Attending Provider: Danielle Sanderson Primary Care Provider: Yang Dobbins Hospital Course Hospital Course: Patient was admitted for surgical procedure which is laparoscopically assisted vaginal hysterectomy with bilateral salpingectomy. She had an uncomplicated surgery course. Postoperative course complicated by mild nausea and vomiting. This resolved with fluid hydration, antiemetics, and reduction in her diet. She discharged home postoperative day #1 ambulating, tolerating regular diet and oral pain medication with stable vital signs. Follow-up with me in the office in 2 and 6 weeks Home Meds and New Rx's Prescriptions: New ondansetron 4 mg tablet,disintegrating 4 mg PO Q8H PRNQty: 20 0RF ibuprofen 800 mg tablet 800 mg PO Q8H PRNQty: 60 1RF oxycodone-acetaminophen [Percocet] 5-325 mg tablet 1 tab PO Q8H PRNQty: 10 0RF docusate sodium [Colace] 100 mg capsule 100 mg PO BID Qty: 20 0RF Continued levothyroxine [Synthroid] 25 mcg tablet 25 mcg PO DAILY Qty: 90 3RF omeprazole 20 mg capsule,delayed release(DR/EC) 20 mg PO DAILY Qty: 90 3RF lisinopril 10 mg tablet 10 mg PO DAILY Qty: 90 3RF Discontinued norethindrone acetate [Aygestin] 5 mg tablet 5 mg PO Q4H WHILE AWAKE Qty: 120 1RF Discharge Instructions Stand Alone Forms: DSU [employer] Operator SurgeryW/Incision Activity:: Pelvic rest Equipment/Supplies:: No Equipment Needed Diet:: As Tolerated Discharge Orders Discharge Orders: Discharge Order (Routine); Ordered 09/20/21 Ordered By: Danielle Sanderson DS: Summary Time Spent with Patient providing and/or coordinating discharge services: Less than 30 minutes Status at Discharge Functional status at discharge: independent ambulation Overall status at discharge: patient is progressing back to baseline Mental Status: mental status grossly normal Speech and Movement: speech and movement normal Mood: congruent mood Affect: normal affect Exam Narrative Exam Narrative: See physical exam from progress note dated 09/20/2021 Psych Mental Status: mental status grossly normal Speech and Movement: speech and movement normal Mood: congruent mood Affect: normal affect DS: Data Vitals/I&O Vitals and I&O: Vital Signs Temperature 98.2 F 09/20/21 07:35 Temperature Source Oral 09/20/21 07:35 Pulse 57 L 09/20/21 07:35 Pulse Rhythm Regular 09/20/21 03:53 Respiratory Rate 16 09/20/21 07:35 Respiratory Effort Non-Labored 09/20/21 03:53 Respiratory Depth Normal 09/20/21 03:53 Respiratory Pattern Normal 09/20/21 03:53 Blood Pressure 115/69 09/20/21 07:35 Pulse Oximetry 97 09/20/21 03:41 Respiratory End-tidal CO2 40 09/19/21 10:50 Oxygen Delivery Method Room Air 09/20/21 07:35 Oxygen Flow Rate 0 09/20/21 07:35 Pain Level 0 09/20/21 03:41 Comment 09/19/21 06:15 Intake & Output 09/19/21 09/19/21 09/20/21 11:59 23:59 11:59 Intake Total 891.667 / 2634.167 1742.5 / 2634.167 1327.083 / 1327.083 Output Total 200 / 1480 1280 / 1480 180 / 180 Balance 691.667 / 1154.167 462.5 / 0613.118 7424.083 / 1147.083 Weight 234 lb 12.677 oz Intake: IV 891.667 / 1754.167 862.5 / 1754.167 927.083 / 927.083 Oral 880 / 880 400 / 400 Output: Urine 480 / 480 180 / 180 Emesis 100 / 900 800 / 900 Estimated Blood Loss 100 / 100 Other: Urine Color Yellow Yellow Yellow Light Brittany Urine Appearance Clear Clear Clear Comment pt has martinez catheter draining, patent output documented in I&O Pt due to void at 0952 Emesis Description None Undigested Food Data Completed and Pending Labs on day of discharge: Labs from last 24 hours 09/20/21 06:13 WBC 16.02 H RBC 4.69 Hgb 10.4 L Hct 33.8 L MCV 72 L MCH 22.2 L MCHC 30.8 L RDW 16.7 H Plt Count 382 MPV 11.1 H Immature Gran % 0.4 Neutrophils % 82.0 Lymphocytes % 10.7 Monocytes % 6.7 Eosinophils % 0.0 Basophils % 0.2 Nucleated RBC % 0.0 Absolute Neutrophils 13.14 H Absolute Lymphocytes 1.71 Absolute Monocytes 1.07 H Absolute Eosinophils 0.00 Absolute Basophils 0.03 PFSH All Active Problems Status post laparoscopic assisted vaginal hysterectomy (LAVH) (Acute) Hypothyroid (Chronic) Tinnitus of both ears (Acute) GERD (gastroesophageal reflux disease) (Chronic) Hypertension (Chronic) Low back pain (Acute) History of endometrial biopsy (Acute) 2013. for menorrhagia. Nl. 03/2020. for eval of menorrhagia. Unsatisfactory cervical Papanicolaou smear (Chronic) 04/14/2020: Colpo directed biopsy and ECC was performed Bilateral hearing loss (Acute 06/29/00) Cochlear implant in place (Acute) Menorrhagia (Acute) 04/14/2020 patient counseled regarding treatment options. Has decided upon a hydrothermal endometrial ablation. Dysmenorrhea (Acute) Medical History Abnormal uterine bleeding for ~ 1yr. Heavy regular menses. Dysmenorrhea. Nl CBC and TSH. Uterus 9cm with 20m myometrial fibroid. Surgical History History of cochlear implant Ligation of fallopian tube Family History Mother Essential hypertension Grandfather Personal history of malignant neoplasm LUNG CAD (coronary artery disease) Grandmother Personal history of malignant neoplasm BREAST/OVARIAN Son No problems noted. Son No problems noted. Daughter No problems noted. Social History Smoking/Tobacco Use Status: Never Second Hand Exposure: Yes Smoking risk assessment performed?: Yes Alcohol Intake: current Alcohol type: beer and wine Drug use: Never Substance use type: does not use Household members: spouse Housing: house Communication Needs: Hard of Hearing Do you need help understanding health information?: Never Pets and animals: No Sexually active: Yes Do you think of yourself as: straight/heterosexual Current gender identity: female What is your relationship status?: How often do you talk on the phone with friends or family?: three or more times per week How often do you get together with friends or relatives?: three or more times per week How often do you attend oriental orthodox or pentecostal services?: decline to answer Do you belong to any clubs or organized social groups?: no Panel score (0-1 are the most socially isolated patients): 2 What type of physical activity do you participate in: walking Duration: 30-45 minutes/day Frequency: daily Oumou/Uatsdin: None Do you feel safe at home: Yes Do you feel safe in your relationship?: Yes Female Reproductive History Menstrual control method: permanent sterilization History History 4 Para 3 Hx # Term Pregnancies Multiple births Hx # Pregnancies Ectopic pregnancies AB induced Hx Number of Living Children AB spontaneous
[2021-09-20] MEDS: Ibuprofen 600 MG TAB PO (09:06)
[2021-09-20] MEDS: Docusate Sodium 100 MG CAP PO (09:06)
[2021-09-20 09:13] VITALS: BP 123/68
== END 2021-09-20 09:55 | disposition home or self-care (01) | DRG 743 ==
LOC: PDS 11:06 → OBS 09-20 08:06
PROVIDERS: Admitting Provider Obstetrics & Gynecology; PCP Nurse Practitioner Family; Visit Provider Obstetrics & Gynecology
PROC: 0UT9FZZ Resection of Uterus, Via Natural or Artificial Opening With Percutaneous Endoscopic Assistance (ICD-10-PCS; CPT 58552; principal; 2021-09-19 07:30)
DX: N92.0 Excessive and frequent menstruation with regular cycle (principal); N94.6 Dysmenorrhea, unspecified; R93.89 Abnormal findings on diagnostic imaging of other specified body structures; E03.9 Hypothyroidism, unspecified; K21.9 Gastro-esophageal reflux disease without esophagitis; M54.50 Low back pain, unspecified; I10 Essential (primary) hypertension; H91.8X3 Other specified hearing loss, bilateral; Z96.21 Cochlear implant status; R42 Dizziness and giddiness; T81.89XA Other complications of procedures, not elsewhere classified, initial encounter; R11.2 Nausea with vomiting, unspecified; N85.8 Other specified noninflammatory disorders of uterus
CPT/HCPCS: 58552; 52000; 36415; 81025; 85025; 88307; J0690; J1100; J1200; J1885; J2250; J2370; J2405; J2704; J3010

== ENCOUNTER 2022-05-14 02:40 | Outpatient (CLI) | payer BC, SELFPAY ==
[2022-05-14 15:44] LABS: HCT 41.7 % (36.0-46.0); HGB 12.6 g/dL (11.2-15.7); MCH 22.5 pg (27.0-33.0); MCHC 30.2 % (32.0-36.0); MCV 75 fL (80-95); MPV 10.2 fL (8.0-11.0); Platelet Count 351 10^3/uL (130-400); RBC 5.59 10^6/uL (3.93-5.22); RDW 16.8 % (11.7-14.6); RDW-SD 43.9 fL
[2022-05-14 16:15] LABS: Hemoglobin A1C 5.8 % (<5.7)
[2022-05-14 16:37] LABS: CREATININE 0.7 mg/dL (0.55-1.02); Estimated GFR 107.28 (mL/min/1.73m2); Potassium 3.7 mmol/L (3.5-5.1)
[2022-05-14 17:17] LABS: TSH 1.63 uIU/mL (0.36-3.74)
== END 2022-05-14 02:41 | disposition home or self-care (01) ==
PROVIDERS: PCP Nurse Practitioner Family; Visit Provider Nurse Practitioner Family
DX: I10 Essential (primary) hypertension (principal); R73.03 Prediabetes; E03.9 Hypothyroidism, unspecified; D72.829 Elevated white blood cell count, unspecified
CPT/HCPCS: 36415; 85027; 82565; 83036; 84132; 84443

== ENCOUNTER 2022-10-04 02:09 | Outpatient (CLI) | payer BC, SELFPAY ==
[2022-10-04 13:46] LABS: Hemoglobin A1C 6.1 % (<5.7)
[2022-10-04 14:09] LABS: CREATININE 0.8 mg/dL (0.55-1.02); Calculated LDL 72 mg/dL (<100); Cholesterol 149 mg/dL (<200); HDL Cholesterol 53 mg/dL (40-60); TSH (W/Ref FT4) 3.36 uIU/mL (0.36-3.74); Triglyceride 124 mg/dL (<150)
== END 2022-10-04 02:10 | disposition home or self-care (01) ==
LOC: LBO 02:10
PROVIDERS: PCP Nurse Practitioner Family; Visit Provider Nurse Practitioner Family
DX: I10 Essential (primary) hypertension (principal); E03.9 Hypothyroidism, unspecified; R73.03 Prediabetes; Z13.220 Encounter for screening for lipoid disorders
CPT/HCPCS: 36415; 80061; 82565; 83036; 84132; 84443

== ENCOUNTER 2023-04-17 06:55 | Day surgery (SDC) | payer BC, SELFPAY ==
--- NOTE | 2023-04-16 21:25 | PDOC.DSDIS_ITS ---
Date of service: 04/17/23 Time of Service: 08:47 Discharge Plan Disposition Patient Disposition: Home Condition: Good Discharge Details Reason For Visit: screening colonoscopy Attending Provider: Leighton Redding Primary Care Provider: Yang Dobbins Home Meds and New Rx's Prescriptions: Continued magnesium oxide 400 mg magnesium tablet 400 mg PO DAILY loratadine [Allergy Relief (loratadine)] 10 mg tablet 10 mg PO DAILY Qty: 90 0RF losartan-hydrochlorothiazide 50-12.5 mg tablet 1 tab PO BID Qty: 90 3RF omeprazole 20 mg capsule,delayed release(DR/EC) 20 mg PO DAILY Qty: 90 3RF Discontinued bisacodyl [Dulcolax (bisacodyl)] 5 mg tablet,delayed release (DR/EC) 5 mg PO ONCE Qty: 4 0RF Rx Instructions: Colonoscopy Bowel Prep- Per Instructions polyethylene glycol 3350 17 gram/dose powder 238 g PO ONCE Qty: 238 0RF Rx Instructions: Colonoscopy Bowel Prep- Per Instructions Discharge Instructions Instructions: Hemorrhoids (GEN), Diverticulosis (GEN), Diverticulosis Diet (GEN) Additional Instructions: Lanie, we were able to complete your colonoscopy today without any issues. Your prep was great. I did not see any signs of tumors, polyps, or anything worrisome. Incidentally, you have a little bit of internal hemorrhoids, and some occasional diverticula. Diverticula are little weak spots that occur in the colon wall as we get older. They can get infected and inflamed, but based on the small number that you have, I suspect these never bother you. I have attached a little bit of information here regarding typical approaches to both hemorrhoids as well as diverticulosis. With an otherwise negative screening colonoscopy, you should consider another one in 10 years to help reduce your chances of dying from colon cancer over the course of your lifetime. If you have any questions in the meantime, please do not hesitate to call at any point. 1. If tolerated, consume a soft, low fiber diet for 1-2 days. 2[address] Do not drive, drink alcohol, operate machinery, make critical decisions, or do activities that require coordination or balance for 24 hours. 3. Because air was put into your colon during the procedure, expelling air from your rectum (passing gas or farting) is normal. 4. You may not have a bowel movement for 1-3 days because of the colonoscopy prep. This is normal. 5. Go directly to the emergency room if you notice any of the following: Develop chills (warm to touch), or if you have a thermometer and your temperature is above 101 Difficulty breathing or difficultly swallowing Persistent vomiting Severe abdominal pain, other than gas cramps Severe chest pain Black, tarry stools Any bleeding ? exceeding one tablespoon 6. Call your physician if the site where your intravenous was started becomes red, swollen, painful, and warm to touch. 7. Your physician has reviewed your pre-procedure medications. Please continue to take those medications as previously ordered. You will be given specific information/education regarding any changes to your medications before leaving. Activity:: Activity as Tolerated Diet:: As Tolerated Discharge Orders Discharge Orders: Discharge Order (Routine); Ordered 04/16/23 Ordered By: Leighton Redding DS: Diagnosis Discharge Diagnosis (1) Screening for colorectal cancer: Status: Acute Asessment and Plan: Some mild internal hemorrhoids and occasional diverticula, otherwise negative sc reening colonoscopy
--- NOTE | 2023-04-16 21:27 | W.COLOREPORT ---
Date of service: 04/17/23 Time of Service: 08:49 Colonoscopy Report Date of procedure: 04/17/23 Pre-op diagnosis general: screening colonoscopy Post-op diagnosis procedure note: other (Diverticulosis, internal hemorrhoids) Procedure: Colonoscopy Surgeon: Leighton Redding Anesthesia Type: General:No Airway Estimated blood loss (mL): 0 Pathology: none sent Complications: None Disposition: same day Indications: Bridgette is a 47 year old woman who needs her first screening colonsocopy Prep: Miralax/Dulcolax Procedure Start Time: 08:20 Procedure End Time: 08:38 Retraction Time: 10 Findings: Grade 1 internal hemorrhoids, occasional sigmoid diverticula Procedure Description: After the induction of monitored anesthetic care, and with the patient in left lateral decubitus position, I began by performing an external anorectal exam.? Perineum and skin were normal, as was the anal verge.? There was no evidence of external hemorrhoids.? Next, I performed a digital rectal exam.? I did not appreciate any abnormal findings.? Next, I advanced a colonoscope into the rectal vault.? I performed retroflexion.? There are mild grade 1 internal hemorrhoids.? Using insufflation, I then advanced the colonoscope beyond the rectal folds and into the sigmoid colon before advancing towards the cecum.? There was some occasional sigmoid diverticula. the quality of the prep was excellent.? The scope was noted to be in the cecum by identification of the ileocecal valve and appendiceal orifice.? I then began withdrawing the colonoscope using repeated irrigation as necessary for full evaluation of the colonic mucosa. ?Once the scope was withdrawn to the level of the rectum, great care was taken to examine portions of the rectal folds.? I did not see any signs of tumors, polyps, or any other worrisome pathology. Finally, the scope was withdrawn and the patient was brought to the same-day surgery recovery unit as the anesthetic wore off. ?The findings and instructions were shared with the patient prior to discharge. [place] Bowel Prep [place] Bowel Prep Right Colon: 3 Left Colon: 3 Transverse Colon: 3 Total Score: 9
[2023-04-17 07:26] VITALS: BP 137/94; PULSE 80; RESP 16; TEMP 36.6; O2SAT 97
[2023-04-17] MEDS: Lactated Ringers 1,000 ML 80 ML IV (07:30)
[2023-04-17 08:13] VITALS: BMI 36.9
--- NOTE | 2023-04-17 08:13 | W.ANESPRE ---
General Info Date of Service Date Performed: 04/17/23 Height: 5 ft 6 in Weight: 103.9 kg Body Mass Index (BMI): 36.9 Surgical Procedure: Operation Date: 04/17/23 08:20 Proposed Procedure Side Surgeon shanell Redding MD Meds Allergies and Home Medications Allergies Allergy/AdvReac Type Severity Reaction Status Date / Time cyclobenzaprine AdvReac lip Verified 04/17/23 07:23 [From Flexeril] tingling Home Medication Medication Instructions Recorded loratadine 10 mg tablet (Allergy 10 mg PO DAILY #90 tabs 12/28/21 Relief (loratadine)) losartan 50 mg-hydrochlorothiazide 1 tab PO BID #90 tabs 10/15/22 12.5 mg tablet omeprazole 20 mg capsule,delayed 20 mg PO DAILY #90 caps 01/31/23 release magnesium oxide 400 mg PO DAILY 04/01/23 Current Visit Medications: Current Medications Generic Name Dose Route Start Last Admin Trade Name Freq PRN Reason Stop Dose Admin Hyoscyamine Sulfate 0.125 mg 04/16/23 21:26 Hyoscyamine 0.125 Mg Sl/Oral/Chew SL 05/16/23 21:25 DIRECTED PRN Ringer's Solution 1,000 mls @ 80 mls/hr 04/17/23 06:00 04/17/23 07:30 IV 04/17/23 23:59 80 mls/hr INFUSION MIRIAN Administration IV Miscellaneous Supplies 1 each 04/17/23 06:00 Iv Access IV 04/17/23 23:59 DIRECTED MIRIAN Ondansetron HCl 4 mg 04/16/23 21:26 Ondansetron 4 Mg/2 Ml Vial IVP 05/16/23 21:25 Q4H PRN PRN Nausea / Vomiting Sodium Chloride 0 ml 04/17/23 06:00 Normal Saline Flush 10 Ml Syr IV 04/17/23 23:59 PRN PRN Sodium Chloride 0 ml 04/17/23 06:00 Normal Saline 10 Ml Vial IJ 04/17/23 23:59 DIRECTED PRN Sterile Water 0 ml 04/17/23 06:00 Water,Injection,Sterile 10 Ml Vial IJ 04/17/23 23:59 DIRECTED PRN PFSH Active Problems Active Problems: Problem Status Onset Code Screening for colorectal cancer Z12.11, Z12.12 Right upper quadrant abdominal pain R10.11 Hypothyroidism E03.9 Pre-diabetes R73.03 Tinnitus of both ears H93.13 GERD (gastroesophageal reflux disease) K21.9 Hypertension I10 Low back pain M54.5 Bilateral hearing loss 06/29/00 H91.[address] Z96.21 Surgical History Surgical History Status post laparoscopic assisted vaginal hysterectomy (LAVH) History of cochlear implant Ligation of fallopian tube Tobacco Smoking/Tobacco Use Status: Never Passive smoking exposure: Yes Second hand exposure: Yes Alcohol Alcohol Intake: current Alcohol intake frequency: a few times a week Alcohol type: wine and hard liquor Substance Use Substance use: Never Substance use type: does not use Prental History History 4 Para 3 Hx # Term Pregnancies Multiple births Hx # Pregnancies Ectopic pregnancies AB induced Hx Number of Living Children AB spontaneous Vital Signs and Lab Results Vital Signs Most Recent Vital Signs in EMR: Most Recent Vital Signs Temp Pulse Resp BP Pulse Ox 36.6 C 80 16 137/94 H 97 04/17/23 07:26 04/17/23 07:26 04/17/23 07:26 04/17/23 07:26 04/17/23 07:26 Lab Results Blood Type / Crossmatch: No Data to Display Complete Blood Count: No Data to Display Complete Metabolic Panel: No Data to Display Liver Function Panel: No Data to Display Coagulation Panel: No Data to Display Cardiac Panel: No Data to Display Arterial Blood Gas: No Data to Display Venous Blood Gas: No Data to Display Pancreas Panel: No Data to Display Thyroid Panel: No Data to Display Infectious Disease: No Data to Display Blood Cultures: No Data to Display Toxicology Panel: No Data to Display Panel: No Data to Display Anesthesia Assessment and Plan Anesthesia History Personal History: No History of Anesthesia Complications Family History: No Family History of Anesthesia Complications Exercise Tolerance Exercise Tolerance: Metabolic Equivalents>4 Pertinent Negatives Pertinent Negatives: No Symptoms of GERD Cardiac & Pulmonary Exam Cardiac Exam: Normal S1/S2 Heart Sounds Pulmonary Exam: Clear Bilateral Breath Sounds Implantable Cardiac Device Does patient have a Pacemaker or an ICD?: No Airway Exam Known Difficult Airway: No Mallampati Class: 1 Mouth Opening: Normal (> 3cm) Thyromental Distance: Greater than 3 cm Neck Range of Motion: Full ROM Neck Circumference: Normal Teeth Condition: Normal Dentition ASA Classification ASA Score: ASA 2 Emergency Case?: No NPO Status NPO Status: NPO Clears >2 hours, Solids >8 hours Status Status: Not Relevant due to Medical History Anesthesia Plan Resuscitation Status: Full Code Anesthesia Technique: General Anesthesia Airway Planned: Natural Airway Monitors Used: Standard Monitors
[2023-04-17 08:44] VITALS: BP 138/84; PULSE 77; RESP 16; TEMP 36.7; O2SAT 99
--- NOTE | 2023-04-17 08:49 | W.ANESPOSTOP ---
Postoperative Evaluation Date, Time and Location Date Performed: 04/17/23 Time Performed: 08:49 Patient Location: Day Surgery Unit Vital Signs Most Recent Imported Vital Signs: Most Recent Vital Signs Temp Pulse Resp BP Pulse Ox 36.7 C 77 16 138/84 99 04/17/23 08:44 04/17/23 08:44 04/17/23 08:44 04/17/23 08:44 04/17/23 08:44 Pain Score Most Recent Pain Score: Most Recent Pain Score Pain Level 0 04/17/23 08:44 Assessment Mental Status: Awake (Alert & Oriented to Patient Baseline) Airway and Respiratory Function: Patent airway with normal (patient baseline) respiratory exam Cardiovascular Function: Hemodynamically Stable Hydration Status: Adequately Hydrated Nausea & Vomiting: No Nausea or Vomiting Pain: Pt. Denies Any Pain Peripheral Nerve Block: Patient did not receive a nerve block
[2023-04-17 09:14] VITALS: BP 120/74; PULSE 63; RESP 18; TEMP 36.5; O2SAT 97
== END 2023-04-17 09:32 | disposition home or self-care (01) ==
PROVIDERS: PCP Nurse Practitioner Family; Visit Provider Surgery
PROC: 0DJD8ZZ Inspection of Lower Intestinal Tract, Via Natural or Artificial Opening Endoscopic (ICD-10-PCS; CPT 45378; principal; 2023-04-17 08:15)
DX: Z12.11 Encounter for screening for malignant neoplasm of colon (principal); K57.30 Diverticulosis of large intestine without perforation or abscess without bleeding; K64.0 First degree hemorrhoids; I10 Essential (primary) hypertension
CPT/HCPCS: 45378; J2001; J2704

== ENCOUNTER → 2023-09-03 02:44 | Outpatient (CLI) | payer BC, SELFPAY ==
--- NOTE | 2023-09-03 12:15 | DI.MAMMO_ITS ---
Exam(s) MAMMO SCREENING EXAM: MAMMO SCREENING CLINICAL HISTORY: screening TECHNIQUE: Bilateral full field digital CC and MLO mammographic images were obtained with 3D tomosyn thesis and utilizing computer aided detection (CAD). COMPARISON: Available for comparison. FINDINGS: Masses/Architectural Distortion: None seen. Microcalcifications: No suspicious pleomorphic-type are seen. Skin Thickening/Nipple Retraction: None. IMPRESSION: 1. No significant interval change with no specific features of malignancy noted. 2. Unless there is more urgent need, screening mammography is recommended, as per [employer] guidelines. BI-RADS Category 1 - Negative Breast Density - Category B - Scattered areas of fibroglandular density Breast density category C or D implies that the patient has dense breast tissue. Dense breast tissue is very common and is not abnormal but dense breast tissue can make it harder to find cancer on a ma mmogram. Also, dense breast tissue may increase their breast cancer risk. This information about the result of the mammogram report was provided to the patient to raise their awareness. Use this report when you speak with the patient about their risks for breast cancer, which includes their family hist ory. At that time, you may recommend for more screening tests (Ultrasound or MRI) as they might be us eful based on their risk. A negative radiographic report should not delay biopsy if a dominant or clinically suspicious mass is present. Up to ten percent of cancers are not identified on mammography. A negative report may reinforce clinical impression. Adenosis and dense breasts may obscure an underlying neoplasm. False positive reports average 6 to 10%. Patient will receive a letter notifying them of these results.
== END ==
PROVIDERS: PCP Nurse Practitioner Family; Visit Provider Obstetrics & Gynecology
DX: Z12.31 Encounter for screening mammogram for malignant neoplasm of breast (principal)
CPT/HCPCS: 77063; 77067

== ENCOUNTER 2024-07-23 00:43 | Outpatient (CLI) | payer BC, SELFPAY ==
[2024-07-23 08:51] LABS: CREATININE 0.7 mg/dL (0.55-1.02); Calculated LDL 106 mg/dL (<100); Cholesterol 194 mg/dL (<200); Estimated GFR 105.95 (mL/min/1.73m2); HDL Cholesterol 66 mg/dL (>or=50); Potassium 3.3 mmol/L (3.5-5.1); Triglyceride 114 mg/dL (<150)
[2024-07-23 09:02] LABS: Hemoglobin A1C 5.8 % (<5.7)
== END 2024-07-23 00:44 | disposition home or self-care (01) ==
PROVIDERS: PCP Nurse Practitioner Family; Visit Provider Nurse Practitioner Family
DX: E03.9 Hypothyroidism, unspecified (principal); R73.03 Prediabetes; I10 Essential (primary) hypertension; Z13.220 Encounter for screening for lipoid disorders
CPT/HCPCS: 36415; 80061; 82565; 83036; 84132; 84443

== ENCOUNTER 2024-08-19 02:30 | Outpatient (CLI) | payer BC, SELFPAY ==
--- NOTE | 2024-08-19 13:50 | DI.US_ITS ---
Exam(s) US BREAST LT LIMITED [facility]MO DIAGNOSTIC BI EXAM: MG MAMMO DIAGNOSTIC BI CLINICAL HISTORY: breast pain,N64.4. COMPARISON: US US BREAST LT LIMITED from 08/19/2024 Mammograms from 2017 through 2023 TECHNIQUE: Craniocaudal and mediolateral oblique Full Field Digital Mammography views of both breast s with Computer Aided Diagnosis followed by Tomosynthesis and left breast ultrasound. FINDINGS: Mammography/Tomosynthesis: Masses: None seen. Architectural Distortion: None seen. Microcalcifications: No suspicious pleomorphic-type are seen. Skin Thickening/Nipple Retraction: None. Left breast US: Echotexture: Normal appearance of the glandular tissue. Shadowing: No suspicious foci. Cyst: None. Solid lesions: None seen. Ductal dilation: None. IMPRESSION: 1. No evidence of malignancy is noted. 2. Unless there is more urgent need, follow-up screening mammography is recommended, as per [employer] guidelines. BI-RADS Category 1 - Negative Breast Density - Category B - There are scattered areas of fibroglandular density. Breast density Category C or D implies that the patient has dense breast tissue. Dense breast tissue can make it harder to find cancer on a mammogram. Dense breast tissue is also associated with an incr eased risk of breast cancer. This information about the result of the mammogram report was provided to the patient to raise their awareness. Use this report when you speak with the patient about their risks for breast cancer, which includes their family history. At that time, you may recommend additional screening tests (Ultrasoun d or MRI) as these tests may add significant information. A negative radiographic report should not delay biopsy if a dominant or clinically suspicious mass is present. Up to ten percent of cancers are not identified on mammography. A negative report may reinforce clinical impression. Adenosis and dense breasts may obscure an underlying neoplasm. False positive reports average 6 to 10%. Patient will receive a letter notifying them of these results.
== END 2024-08-19 02:50 ==
LOC: DI 02:30
PROVIDERS: PCP Nurse Practitioner Family; Visit Provider Obstetrics & Gynecology
DX: N64.4 Mastodynia (principal); Z12.31 Encounter for screening mammogram for malignant neoplasm of breast
CPT/HCPCS: 76642; 77062; 77066; G0279